=== PATIENT | male | born 1955 | race Caucasian/White ===

== ENCOUNTER 2018-09-25 08:38 | Emergency (ER) | payer MEDICAID, OTHER ==
[~2018-09-25] VITALS: Ht 172.7 cm; Wt 67.1 kg
[2018-09-25 08:45] VITALS: BP 168/86
--- NOTE | 2018-09-25 08:50 | NUR ---
Patient ambulated to bed 6. RN evaluating patient at bedside.
--- NOTE | 2018-09-25 08:57 | NUR ---
PATIENT PRESENTS TO ED WITH C/O DIZZINESS AND NAUSEA X 2 DAYS. PT DENIES VOMITING OR FEVER. AFEBRILE. AAOX4. NOTED WITH EVEN AND STEADY GAIT AT THIS TIME. PT IS ALERT AND ORIENTED TO PERSON, PLACE, TIME AND EVENT. BILATERAL HAND BROKERAGE MANAGER EQUAL. BILATERAL FOOT PUSH EQUAL. PUPILS EQUAL AND REACTIVE TO LIGHT BILATERALLY. NO SMILE DEFICIT NOTED. CLEAR SPEECH. PT WAS ABLE TO IDENTIFIED ALL THE PICTURES FROM [facility] STROKE SCALE WITHOUT ANY DIFFICULTY. PLACED ON A GOWN, CONNECTED TO MONITOR AND POSITIONED FOR COMFORT. BED LOCK AND DOWN. PENDING ER MD EVALUATION.
--- NOTE | 2018-09-25 09:14 | NUR ---
Dr. Johnson evaluating patient at bedside.
[2018-09-25] MEDS ORDERED: MECLIZINE 25 MG TAB PO ONE (09:20)
[2018-09-25] MEDS ORDERED: diphenhydrAMINE 50 MG/ML VIAL IVP ONE (09:20)
[2018-09-25] MEDS ORDERED: NACL 0.9% 500 ML IV ONE (09:20)
[2018-09-25] MEDS ORDERED: LORazepam 0.5 MG TAB PO ONE (09:20)
--- NOTE | 2018-09-25 10:36 | NUR ---
Patient is resting comfortably in bed. Vital Signs within normal limits. Respirations even and unlabored.
--- NOTE | 2018-09-25 10:51 | NUR ---
PT AMBULATING WITH THE SUPERVISION OF MARKOS ALEXIS. EVEN AND STEADY GAIT. DENIES DIZZINESS AT THIS TIME.
--- NOTE | 2018-09-25 11:41 | NUR ---
Patient discharged with v/s stable. Written and verbal after care instructions given and explained. Patient alert, oriented and verbalized understanding of instructions. Ambulatory with steady gait. All questions addressed prior to discharge. ID band removed. Patient advised to follow up with PMD. Rx of ATROVERT 25 MG given. Patient educated on indication of medication including possible reaction and side effects. Opportunity to ask questions provided and answered.
[2018-09-25 11:42] VITALS: BP 158/82
--- NOTE | 2018-09-30 10:00 | NUR ---
Late entry. Confirmed with RN that IV fluyids continued until discharge at 1140.
== END 2018-09-25 11:41 | disposition home or self-care (01) ==
LOC: MED 08:38
DX: R42 Dizziness and giddiness (principal); H92.02 Otalgia, left ear; R09.89 Other specified symptoms and signs involving the circulatory and respiratory systems
CPT/HCPCS: 96361; 96374; 99283; J1200; J7030; J8597

== ENCOUNTER 2020-11-16 10:22 | Emergency (ER) | payer OTHER ==
[~2020-11-16] VITALS: Ht 152.4 cm; Wt 61.2 kg
--- NOTE | 2020-11-16 10:33 | NUR ---
Patient ambulated with steady gait to bed 9.
[2020-11-16 10:34] VITALS: BP 137/102
--- NOTE | 2020-11-16 10:37 | NUR ---
65 YEAR OLD MALE COMPLAINS OF SHARP OBJECT CUT INTO LEFT FOREARM. SITE WITH REDNESS AND INFLAMMATION BUT NO ACTIVE BLEEDING. RADIAL PULSE +2, CAP REFILL <3 SEC. PT AOX4, BREATHING EVEN AND UNLABORED, SKIN WARM AND DRY. BED IN LOWEST POSITION, LOCKED, BED RAIL UPX1. PT UP TO DATE ON TETANUS VACCINATION PMH - DENIES ALLERGIES - NKA
[2020-11-16] MEDS ORDERED: cephALEXin 500 MG CAP PO ONE (10:40)
[2020-11-16] MEDS ORDERED: BACITRACIN OINT 500 UNITS/GM PKT TP ONE ×2 (10:40)
[2020-11-16] MEDS ORDERED: CEPH-588 PO (10:47)
[2020-11-16] MEDS ORDERED: NAPR-54 PO (10:47)
[2020-11-16 11:01] VITALS: BP 137/102
--- NOTE | 2020-11-16 11:01 | NUR ---
Patient discharged with v/s stable. Written and verbal after care instructions about nonsutured laceration care given and explained. Patient alert, oriented and verbalized understanding of instructions. Ambulatory with steady gait. All questions addressed prior to discharge. ID band removed. Patient advised to follow up with PMD. Rx of keflex, naprosyn given. Patient educated on indication of medication including possible reaction and side effects. Opportunity to ask questions provided and answered.
== END 2020-11-16 11:01 | disposition home or self-care (01) ==
LOC: MED 10:22
DX: S51.812A Laceration without foreign body of left forearm, initial encounter (principal); I10 Essential (primary) hypertension; W26.8XXA Contact with other sharp object(s), not elsewhere classified, initial encounter; Y93.89 Activity, other specified; Y92.89 Other specified places as the place of occurrence of the external cause; Y99.8 Other external cause status
CPT/HCPCS: 99284

== ENCOUNTER 2021-12-07 21:43 | Emergency (ER) | payer OTHER ==
[~2021-12-07] VITALS: Ht 160 cm; Wt 60.3 kg
[~2021-12-07 21:43] MED LIST: BISM262C52 PO; CEPH-588 PO; FERR-149 PO; OMEP1CAP PO
--- NOTE | 2021-12-07 22:00 | NUR ---
Patient discharged with v/s stable. Written and verbal after care instructions given and explained. Patient alert, oriented and verbalized understanding of instructions. Ambulatory with steady gait. All questions addressed prior to discharge. ID band removed. Patient advised to follow up with PMD. Rx of LISINOPRIL given. Patient educated on indication of medication including possible reaction and side effects. Opportunity to ask questions provided and answered.
[2021-12-07 22:03] VITALS: BP 154/80
[2021-12-07] MEDS ORDERED: LISI20TA29 PO (22:03)
== END 2021-12-07 22:05 | disposition home or self-care (01) ==
LOC: MED 21:43
DX: I10 Essential (primary) hypertension (principal)
CPT/HCPCS: 99283

== ENCOUNTER 2022-03-26 11:09 | Emergency (ER) | payer OTHER ==
[~2022-03-26] VITALS: Ht 157.5 cm; Wt 61.3 kg
[~2022-03-26 11:09] MED LIST changes: +LISI20TA29 PO
[2022-03-26 12:07] VITALS: BP 140/77
--- NOTE | 2022-03-26 12:32 | NUR ---
DR RJOAS AT BEDSIDE.
[2022-03-26] MEDS ORDERED: NACL 0.9% 1,000 ML IV ONE (12:35)
[2022-03-26] MEDS ORDERED: FAMOTIDINE 20 MG/2 ML VIAL IVP ONE (12:35)
[2022-03-26] MEDS ORDERED: ONDANSETRON 4 MG/2 ML VIAL IVP ONE (12:35)
--- NOTE | 2022-03-26 12:37 | NUR ---
66 Y/O MALE BIB SELF C/O ABD PAIN 02/11 , N/V/D X YESTERDAY. NKA PMH:HTN
--- NOTE | 2022-03-26 13:00 | NUR ---
LAB AT BEDSIDE.
--- NOTE | 2022-03-26 13:00 | NUR ---
RAÚL AND INFLUENZA A&B SWABED AND GIVEN TO THE LAB.
[2022-03-26 13:10] LABS: BASOPHILS # (AUTO) 0.1 K/uL (0.00-0.22); BASOPHILS % (AUTO) 0.6 % (0.0-2.0); EOSINOPHILS # (AUTO) 0.1 K/uL (0-0.4); EOSINOPHILS % (AUTO) 0.5 % (0.0-4.0); HEMATOCRIT 29.9 % (36-52); HEMOGLOBIN 9.7 g/dL (12.0-18.0); LYMPHOCYTES # (AUTO) 2.8 K/uL (2.0-11.5); MEAN CORPUSCULAR HEMOGLOBIN 27 pg (27-31); MEAN CORPUSCULAR HGB CONC 33 g/dL (33-37); MEAN CORPUSCULAR VOLUME 81.6 fL (80-94); MONOCYTES # (AUTO) 1.1 K/uL (0.8-1.0); MONOCYTES % (AUTO) 7.2 % (1.7-9.3); NEUTROPHILS # (AUTO) 10.7 K/uL (1.8-7.7); NEUTROPHILS % (AUTO) 72.7 % (42.2-75.2); PLATELET COUNT (AUTO) 252 K/uL (140-450); RED BLOOD CELL COUNT(AUTO) 3.66 MIL/uL (4.20-6.10); RED CELL DISTRIBUTION WIDTH 14.9 % (11.6-13.7); WHITE BLOOD COUNT (AUTO) 14.8 K/uL (4.8-10.8)
[2022-03-26 13:52] LABS: ANION GAP 10.8 (8-16); CARBON DIOXIDE 32.3 mmol/L (21-32); CREATININE 1.1 mg/dL (0.6-1.3); POTASSIUM 3.1 mmol/L (3.5-5.1); TOTAL BILIRUBIN 0.2 mg/dL (0.0-1.0)
[2022-03-26 15:10] LABS: APPEARANCE,URINE SL CLOUDY (CLEAR); BILIRUBIN,URINE NEGATIVE (NEGATIVE); BLOOD, URINE 3+ (NEGATIVE); COLOR,URINE YELLOW (YELLOW); LEUKOCYTE ESTERASE ,URINE TRACE (NEGATIVE); NITRITE, URINE NEGATIVE (NEGATIVE); UGLUCOSE NEGATIVE (NEGATIVE)
[2022-03-26 15:43] LABS: OTHER CASTS, URINE None Seen /LPF (None Seen); RBC,URINE 20-50 /HPF (0-5)
--- NOTE | 2022-03-26 15:51 | NUR ---
DR BHAKTA AT BEDSIDE.
[2022-03-26] MEDS ORDERED: FAMO-92 PO (15:54)
[2022-03-26] MEDS ORDERED: BEN10 PO (15:54)
[2022-03-26] MEDS ORDERED: ONDA-188 PO (15:54)
[2022-03-26] MEDS ORDERED: AMOX1TAB8 PO (15:54)
[2022-03-26 16:49] VITALS: BP 124/75
--- NOTE | 2022-03-26 16:50 | NUR ---
Patient discharged with v/s stable. Written and verbal after care instructions given and explained. Patient alert, oriented and verbalized understanding of instructions. Ambulatory with steady gait. All questions addressed prior to discharge. ID band removed. Patient advised to follow up with PMD. Rx of AMOXICILLIN/POTASSIUM, DICLOMINE HYDROCHLORIDE, FAMOTIDINE, ONDANSETRON given. Opportunity to ask questions provided and answered.
== END 2022-03-26 16:49 | disposition home or self-care (01) ==
LOC: MED 11:09
DX: R10.13 Epigastric pain (principal); Z20.822 Contact with and (suspected) exposure to COVID-19; R11.2 Nausea with vomiting, unspecified; R19.7 Diarrhea, unspecified; I10 Essential (primary) hypertension; Z79.899 Other long term (current) drug therapy
CPT/HCPCS: 36415; 74177; 80053; 81001; 83690; 85025; 87086; 87426; 87804; 96361; 96374; 96375; 99285; J2405; J3490; Q9967

== ENCOUNTER 2023-01-07 08:12 | Emergency (ER) | payer OTHER ==
[~2023-01-07] VITALS: Ht 157.5 cm; Wt 59.9 kg
[~2023-01-07 08:12] MED LIST changes: +AMOX1TAB8 PO; +BEN10 PO; +FAMO-92 PO; +ONDA-188 PO
[2023-01-07 08:14] VITALS: BP 205/124; PULSE 91; RESP 18; TEMP 97.8; O2SAT 98
[2023-01-07] MEDS ORDERED: FAMOTIDINE 20 MG TAB PO ONE (09:30)
[2023-01-07] MEDS ORDERED: NACL 0.9% 1,000 ML IV SCH (09:30)
[2023-01-07] MEDS ORDERED: ALUMINUM HYD/MAG/SIMETHICONE 30 ML UDC PO ONE (09:30)
[2023-01-07] MEDS ORDERED: DICYCLOMINE HCL LIQUID 10 MG/5 ML UDC PO ONE (09:30)
[2023-01-07] MEDS ORDERED: ONDANSETRON 4 MG/2 ML VIAL IVP ONE (09:30)
[2023-01-07 09:45] LABS: BASOPHILS # (AUTO) 0.1 K/uL (0.00-0.22); BASOPHILS % (AUTO) 0.5 % (0.0-2.0); EOSINOPHILS % (AUTO) 0.1 % (0.0-4.0); HEMATOCRIT 41.2 % (36-52); HEMOGLOBIN 13.1 g/dL (12.0-18.0); LYMPHOCYTES # (AUTO) 2.8 K/uL (2.0-11.5); LYMPHOCYTES % (AUTO) 15.8 % (20.5-51.1); MEAN CORPUSCULAR HEMOGLOBIN 25 pg (27-31); MEAN CORPUSCULAR HGB CONC 32 g/dL (33-37); MEAN CORPUSCULAR VOLUME 77.6 fL (80-94); MONOCYTES % (AUTO) 5.7 % (1.7-9.3); NEUTROPHILS # (AUTO) 13.6 K/uL (1.8-7.7); NEUTROPHILS % (AUTO) 77.9 % (42.2-75.2); PLATELET COUNT (AUTO) 300 K/uL (140-450); RED BLOOD CELL COUNT(AUTO) 5.31 MIL/uL (4.20-6.10); RED CELL DISTRIBUTION WIDTH 20.5 % (11.6-13.7); WHITE BLOOD COUNT (AUTO) 17.5 K/uL (4.8-10.8)
[2023-01-07 10:06] LABS: APPEARANCE,URINE CLEAR (CLEAR); BILIRUBIN,URINE NEGATIVE (NEGATIVE); BLOOD, URINE 2+ (NEGATIVE); COLOR,URINE YELLOW (YELLOW); LEUKOCYTE ESTERASE ,URINE 1+ (NEGATIVE); NITRITE, URINE NEGATIVE (NEGATIVE); PROTEIN,URINE 1+ (NEGATIVE); UGLUCOSE NEGATIVE (NEGATIVE); UROBILINOGEN,URINE 0.2 EU/dL (0.2 - 1)
[2023-01-07 10:09] LABS: ALBUMIN 4.4 g/dL (3.4-5.0); ANION GAP 12.6 (8-16); CALCIUM 9.3 mg/dL (8.5-10.1); CARBON DIOXIDE 32.2 mmol/L (21-32); CREATININE 1.1 mg/dL (0.6-1.3); TOTAL BILIRUBIN 0.3 mg/dL (0.0-1.0); TOTAL PROTEIN, SERUM 8.5 g/dL (6.4-8.2)
[2023-01-07 10:15] LABS: POTASSIUM 2.8 mmol/L (3.5-5.1)
[2023-01-07 10:18] LABS: RBC,URINE 11-20 (MOD) /HPF (0-5)
[2023-01-07 10:19] LABS: BACTERIA,URINE 1+ /HPF (None Seen); SQUAMOUS EPITHELIAL CELL,UR 0-3 (FEW) /LPF (0-3 (FEW))
[2023-01-07] MEDS ORDERED: POTASSIUM CHL 20 MEQ / DEXT 5% 1,000 ML IV ONE (12:10)
[2023-01-07 17:50] VITALS: BP 168/102; PULSE 74; RESP 18; TEMP 97.8; O2SAT 97
== END 2023-01-07 17:36 | disposition short-term general hospital (02) ==
LOC: MED 08:12
DX: K40.90 Unilateral inguinal hernia, without obstruction or gangrene, not specified as recurrent (principal); E87.6 Hypokalemia; K56.609 Unspecified intestinal obstruction, unspecified as to partial versus complete obstruction; I10 Essential (primary) hypertension; Z79.899 Other long term (current) drug therapy
CPT/HCPCS: 36415; 74177; 80053; 81001; 83690; 85025; 87086; 96361; 96365; 96375; 99285; J2405; J7030; J7070; Q9967

== ENCOUNTER 2023-04-29 15:29 | Emergency (ER) | payer OTHER ==
[~2023-04-29] VITALS: Ht 156.2 cm; Wt 64.4 kg
[2023-04-29 16:11] VITALS: BP 157/102; PULSE 85; RESP 18; TEMP 97.8; O2SAT 96
[2023-04-29] MEDS ORDERED: MIRABULK PO (18:19)
[2023-04-29 18:27] VITALS: BP 157/102; PULSE 85; RESP 18; TEMP 97.8; O2SAT 96
== END 2023-04-29 18:27 | disposition home or self-care (01) ==
LOC: MED 15:29
DX: K59.00 Constipation, unspecified (principal); K40.90 Unilateral inguinal hernia, without obstruction or gangrene, not specified as recurrent; I10 Essential (primary) hypertension; Z79.899 Other long term (current) drug therapy; Z79.2 Long term (current) use of antibiotics
CPT/HCPCS: 99282

== ENCOUNTER 2023-06-25 14:56 | Emergency (ER) | payer OTHER ==
[~2023-06-25] VITALS: Ht 157.5 cm; Wt 63.5 kg
[~2023-06-25 14:56] MED LIST changes: +MIRABULK PO
[2023-06-25 15:06] VITALS: BP 157/89; PULSE 87; RESP 18; TEMP 98.3; O2SAT 97
[2023-06-25 16:09] VITALS: BP 145/82; PULSE 88; RESP 16; TEMP 98.3; O2SAT 98
== END 2023-06-25 16:09 | disposition home or self-care (01) ==
LOC: MED 14:56
DX: K91.840 Postprocedural hemorrhage of a digestive system organ or structure following a digestive system procedure (principal); Z48.01 Encounter for change or removal of surgical wound dressing; I10 Essential (primary) hypertension; Z79.899 Other long term (current) drug therapy; Z98.890 Other specified postprocedural states
CPT/HCPCS: 99282